=== PATIENT | male | born 1980 | race Caucasian/White ===

== ENCOUNTER 2024-11-29 20:41 | Emergency (ER) | payer OTHER, SELFPAY ==
[2024-11-29 20:48] VITALS: BP 155/106; PULSE 131; RESP 18; TEMP 36.6; O2SAT 94; BMI 28.5
[2024-11-29 20:58] VITALS: PULSE 128; RESP 18; O2SAT 98
--- NOTE | 2024-11-29 21:41 | PD.EDRME ---
Rapid Medical Screening Exam RME Arrival date/time: 11/29/24 20:41 This is a 44-year-old male who presents to the emergency department with complaints of a possible seizure. I have greeted and performed a focused initial assessment of this patient. Initial appropriate labs ordered at this time. A comprehensive ED assessment and evaluation of the patient and analysis of all test and completion of medical decision making process will be conducted by additional ED provider. Chief Complaint: Seizure Time Seen by Provider: 11/29/24 21:41 Vital signs: Vital Signs Temperature 97.8 F 11/29/24 20:48 Pulse Rate 131 H 11/29/24 20:48 Respiratory Rate 18 11/29/24 20:48 Blood Pressure 155/106 H 11/29/24 20:48 Pulse Oximetry (%) 94 L 11/29/24 20:48 Oxygen Delivery Method Room Air 11/29/24 20:48
--- NOTE | 2024-11-29 21:49 | PC.NURSE ---
Patient stated as soon as he was taken to his room that he wanted a doctor immediately or he was going to leave; documenting staff informed patient several times that the ed provider will see him but is currently assessing other patients; patient was not satisfied with documenting staff's response and asked to call his using staff's phone to get a ride home; patient then proceeded to walk to the exit with documenting staff assisting patient while he walked due to his unsteady gait.
--- NOTE | 2024-11-29 22:20 | PC.NURSE ---
Upon exit patient was asked by documenting staff to AMA but patient refused.
== END 2024-11-29 22:52 | disposition left against medical advice (07) ==
LOC: SERX 22:36
PROVIDERS: Emergency Provider Emergency Medicine
DX: R56.9 Unspecified convulsions (principal); Z53.29 Procedure and treatment not carried out because of patient's decision for other reasons
CPT/HCPCS: 99281